=== PATIENT | male | born 1955 | race Caucasian/White ===

== ENCOUNTER 2016-11-23 12:38 | Outpatient (CLI) | payer OTHER | END 2016-11-23 12:39 | disposition home or self-care (01) | LOC: LAB.F 12:38 | PROVIDERS: ATTEND Family Medicine | DX: I82.419 Acute embolism and thrombosis of unspecified femoral vein (principal) | CPT/HCPCS: 85610 ==

== ENCOUNTER → 2017-03-01 | Outpatient (CLI) | payer OTHER | LOC: LAB.F 15:59 | PROVIDERS: ATTEND Family Medicine | DX: I82.419 Acute embolism and thrombosis of unspecified femoral vein (principal) | CPT/HCPCS: 85610 ==

== ENCOUNTER 2017-06-03 12:33 | Outpatient (CLI) | payer OTHER | END 2017-06-03 12:34 | disposition home or self-care (01) | LOC: LAB.F 12:33 | PROVIDERS: ATTEND Family Medicine | DX: I82.419 Acute embolism and thrombosis of unspecified femoral vein (principal) | CPT/HCPCS: 85610 ==

== ENCOUNTER 2017-07-12 11:20 | Emergency (ER) | payer OTHER ==
[2017-07-12 12:06] LABS: BASOPHILS % (AUTO) 0.4 %; EOSINOPHILS # (AUTO) 0.1 10^3/uL (0.0-0.7); EOSINOPHILS % (AUTO) 1.1 %; HGB - HEMOGLOBIN 15.1 g/dL (14.0-18.0); LYMPHOCYTES # (AUTO) 0.9 10^3/uL (1.5-3.5); LYMPHOCYTES % (AUTO) 11.7 %; MEAN CORPUSCULAR HEMOGLOBIN 33.1 pg (27.0-31.0); MEAN CORPUSCULAR HGB CONC 34.6 g/dL (32.0-36.0); MEAN CORPUSCULAR VOLUME 95.6 fL (80.0-94.0); MEAN PLATELET VOLUME 8.1 fL (7.4-11.4); MONOCYTES # (AUTO) 0.6 10^3/uL (0.0-1.0); MONOCYTES % (AUTO) 7.8 %; PLT - PLATELET COUNT 154 10^3/uL (130-450); RED BLOOD COUNT 4.57 10^6/uL (4.70-6.10); WHITE BLOOD COUNT 7.6 x10^3/uL (4.8-10.8)
[2017-07-12 12:14] LABS: INR 2.3 (0.8-1.2); PT - PROTHROMBIN TIME 24.8 secs (9.9-12.6)
[2017-07-12 12:17] LABS: ALBUMIN/GLOBULIN RATIO 1.4 (1.0-2.2); BILIRUBIN,TOTAL 0.5 mg/dL (0.2-1.0); CALCIUM 8.4 mg/dL (8.5-10.3); CREATININE 1.2 mg/dL (0.6-1.2); TOTAL PROTEIN 6.9 g/dL (6.7-8.2)
--- NOTE | 2017-07-12 13:23 | ED Physician Documentation ---
History of Present Illness - Stated complaint Stated Complaint: DIZZY/LETHARGIC - Chief complaint Chief Complaint: Neuro - History obtained from History obtained from: Patient - History of Present Illness Timing: How many weeks ago (3) - Additonal information Additional information: 61-year-old male developed an upper respiratory tract infection twin and . He had a lot of coughing and coughing paroxysms at the time this slowly improved his cough is gotten better but he has had intermittent episodes of dizziness since then. He is having dizziness lasting 1-2 days and this is improved with use of some [place]. Review of Systems Constitutional: reports: Fatigue. denies: Fever Eyes: denies: Decreased vision Ears: denies: Ear pain Nose: reports: Congestion Throat: denies: Sore throat Cardiac: denies: Chest pain / pressure, Palpitations Respiratory: reports: Cough. denies: Dyspnea GI: reports: Nausea. denies: Abdominal Pain, Vomiting : denies: Dysuria, Frequency Skin: denies: Rash Musculoskeletal: denies: Neck pain, Back pain, Extremity pain Neurologic: denies: Generalized weakness, Focal weakness, Numbness PD PAST MEDICAL HISTORY - Past Medical History Past Medical History: Yes Cardiovascular: Deep vein thrombosis Respiratory: Asthma Neuro: None GI: GERD, Chronic constipation : Kidney stones HEENT: None Psych: Depression, Anxiety, ADD/ADHD Derm: None - Past Surgical History Past Surgical History: Yes General: Hiatal hernia repair - Present Medications Home Medications: Ambulatory Orders Medication Instructions Recorded Confirmed Dextroamphetamine/Amphetamine 30 03/02/13 03/02/13 [Adderall 10 mg Tablet] Azithromycin [Zithromax] 250 mg PO DAILY #6 tablet 07/12/17 Carvedilol mg PO 07/12/17 Warfarin Sodium [Coumadin] mg PO 07/12/17 - Allergies Allergies/Adverse Reactions: Allergies Allergy/AdvReac Type Severity Reaction Status Date / Time No Known Drug Allergies Allergy Verified 03/02/13 00:14 - Social History Does the pt smoke?: Yes Smoking Status: Current every day smoker Does the pt drink ETOH?: Yes Does the pt have substance abuse?: No - Immunizations Immunizations are current?: No - POLST Patient has POLST: No PD ED PE NORMAL - Vitals Vital signs reviewed: Yes (hypertensive mild ) - General General: Alert and oriented X 3, No acute distress, Well developed/nourished - HEENT HEENT: Atraumatic, PERRL, EOMI, Other (both TM's are inflamed along the umbo and the left is inflamed in the attic and the landmarks are rounded. 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, No motor deficit, No sensory deficit, Normal speech Eye Opening: Spontaneous Motor: Obeys Commands Verbal: Oriented GCS Score: 15 - Psych Psych: Normal mood, Normal affect Results - Vitals Vitals: Vital Signs - 24 hr 07/12/17 11:33 Temperature 36.2 C L Heart Rate 88 Respiratory 16 Rate Blood Pressure 138/80 H O2 Saturation 100 Oxygen O2 Source Room air - EKG (time done) 1130 Rate: Rate (enter#) (88) Rhythm: NSR, Other (APC's) Compare to prior EKG: Unchanged from prior EKG (08-02-14) Computer interpretation: Agree with computer - Labs Labs: Laboratory Tests 07/12/17 07/12/17 07/12/17 11:57 11:57 11:57 WBC 7.6 RBC 4.57 L Hgb 15.1 Hct 43.7 MCV 95.6 H MCH 33.1 H MCHC 34.6 RDW 13.0 Plt Count 154 MPV 8.1 Neut # 6.0 Lymph # 0.9 L [place] # 0.6 Eos # 0.1 Baso # 0.0 Absolute Nucleated RBC 0.00 Nucleated RBC % 0.0 PT 24.8 H INR 2.3 H Sodium 135 Potassium 3.7 Chloride 102 Carbon Dioxide 25 Anion Gap 8.0 BUN 17 Creatinine 1.2 Estimated GFR (MDRD) 61 L Glucose 140 H Calcium 8.4 L Total Bilirubin 0.5 AST 21 ALT 27 Alkaline Phosphatase 65 Total Protein 6.9 Albumin 4.0 Globulin 2.9 Albumin/Globulin Ratio 1.4 Lipase 20 L PD MEDICAL DECISION MAKING - ED course Complexity details: reviewed results, re-evaluated patient, considered differential, d/w patient ED course: 61-year-old male on Coumadin has developed acute dizziness in episodes since an upper respiratory tract infection 3 weeks ago. He has some improvement in his cough but continues to have intermittent cough and symptoms. On examination today he does have evidence of otitis media bilaterally and I suspect this infection has been indolent giving him symptoms on and off. He is treated here in the emergency department with 10 mg of dexamethasone we will place him on some azithromycin. Departure - Departure Disposition: Home, Self Care Clinical Impression: Otitis media Qualifiers: Otitis media type: suppurative Chronicity: acute Laterality: bilateral Recurrence: not specified as recurrent Spontaneous tympanic membrane rupture: without spontaneous rupture Qualified Code(s): H66.003 - Acute suppurative otitis media without spontaneous rupture of ear drum, bilateral Condition: Stable Instructions: ED Otitis Media Acute Adult Follow-Up: Jonnie Alvarado MD [Primary Care Provider] - Prescriptions: Azithromycin [Zithromax] 250 mg PO DAILY #6 tablet Comments: You are on Coumadin and because you are on antibiotic you will need to have your INR checked in about 3 days follow-up with your primary care doctor.
[2017-07-12] MEDS ORDERED: DEXAMETHASONE 10 MG/ML VIAL PO STA (13:29)
[2017-07-12 13:33] VITALS: BP 126/65
[2017-07-12] MEDS ORDERED: CHERRY SYRUP 10 ML UDC PO ONE (13:41)
== END 2017-07-12 13:40 | disposition home or self-care (01) ==
LOC: ED 11:20
DX: H66.003 Acute suppurative otitis media without spontaneous rupture of ear drum, bilateral (principal); F17.200 Nicotine dependence, unspecified, uncomplicated; R94.31 Abnormal electrocardiogram [ECG] [EKG]; Z86.718 Personal history of other venous thrombosis and embolism; Z79.01 Long term (current) use of anticoagulants
CPT/HCPCS: 36415; 80053; 83690; 85025; 85610; 93005; 99283; A9270

== ENCOUNTER 2017-08-26 07:31 | Outpatient (CLI) | payer OTHER | END 2017-08-26 07:32 | disposition critical access hospital (66) | LOC: EMS 07:31 | PROVIDERS: ATTEND Surgery | DX: R42 Dizziness and giddiness (principal); R11.2 Nausea with vomiting, unspecified | CPT/HCPCS: A0425; A0429 ==

== ENCOUNTER 2017-08-26 08:10 | Emergency (ER) | payer OTHER ==
[2017-08-26] MEDS ORDERED: SODIUM CHLORIDE 0.9% 1,000 ML IV ONE (08:31)
--- NOTE | 2017-08-26 08:35 | ED Physician Documentation ---
History of Present Illness - Stated complaint Stated Complaint: VERTIGO - Chief complaint Chief Complaint: Neuro - History obtained from History obtained from: Patient, EMS - History of Present Illness Timing: How many days ago (2) Pain level max: 0 Pain level now: 0 Improved by: rest Worsened by: moving - Additonal information Additional information: States has felt "weak and like things are spinning" since yesterday. States similar symptoms in the past with ear infections. Denies any fevers, cough, diarrhea. Has had some nausea without vomiting. Not feeling the vertigo now. Review of Systems Constitutional: denies: Fever, Chills Nose: denies: Rhinorrhea / runny nose, Congestion Cardiac: denies: Chest pain / pressure Respiratory: denies: Cough, Wheezing GI: denies: Vomiting, Diarrhea Skin: denies: Rash Musculoskeletal: denies: Neck pain, Back pain Neurologic: denies: Headache PD PAST MEDICAL HISTORY - Past Medical History Past Medical History: Yes Cardiovascular: Deep vein thrombosis, Atrial fibrillation Respiratory: Asthma Neuro: None GI: GERD, Chronic constipation : Kidney stones HEENT: None Psych: Depression, Anxiety, ADD/ADHD Derm: None - Past Surgical History Past Surgical History: Yes General: Hiatal hernia repair - Present Medications Home Medications: Ambulatory Orders Medication Instructions Recorded Confirmed Dextroamphetamine/Amphetamine 30 03/02/13 03/02/13 [Adderall 10 mg Tablet] Carvedilol mg PO 07/12/17 Warfarin Sodium [Coumadin] mg PO 07/12/17 Meclizine HCl 12.5 mg PO Q6H PRN #10 tablet 08/26/17 - Allergies Allergies/Adverse Reactions: Allergies Allergy/AdvReac Type Severity Reaction Status Date / Time No Known Drug Allergies Allergy Verified 08/26/17 08:32 - Social History Does the pt smoke?: Yes Smoking Status: Current every day smoker Does the pt drink ETOH?: Yes Does the pt have substance abuse?: No - Immunizations Immunizations are current?: No - POLST Patient has POLST: No PD ED PE NORMAL - Vitals Vital signs reviewed: Yes - General General: Alert and oriented X 3, No acute distress - HEENT HEENT: PERRL, EOMI, Ears normal, Moist mucous membranes, Pharynx benign - Neck Neck: Supple, no meningeal sign - Cardiac Cardiac: RRR, Strong equal pulses - Respiratory Respiratory: No respiratory distress, Clear bilaterally - Abdomen Abdomen: Soft, Non tender, Non distended - Derm Derm: Warm and dry - Neuro Neuro: Alert and oriented X 3, health outcomes liaison 2-12 intact Eye Opening: Spontaneous Motor: Obeys Commands Verbal: Oriented GCS Score: 15 - Psych Psych: Normal mood, Normal affect Results - Vitals Vitals: Vital Signs - 24 hr 08/26/17 08/26/17 08:14 09:36 Temperature 36.5 C Heart Rate 56 L 60 Respiratory 18 14 Rate Blood Pressure 129/83 H 157/85 H O2 Saturation 97 96 Oxygen O2 Source Room air - EKG (time done) 0823 Rate: Rate (enter#) (92) Rhythm: NSR, Other (PAC) [place]: Normal Intervals: Normal IN QRS: Normal Ischemia: Normal ST segments - Labs Labs: Laboratory Tests 08/26/17 08/26/17 08/26/17 08:38 08:38 08:55 WBC 6.5 RBC 4.53 L Hgb 15.2 Hct 43.3 MCV 95.6 H MCH 33.6 H MCHC 35.1 RDW 13.7 Plt Count 146 MPV 8.6 Neut # 4.4 Lymph # 1.5 [place] # 0.5 Eos # 0.1 Baso # 0.0 Absolute Nucleated RBC 0.00 Nucleated RBC % 0.0 PT INR Sodium 138 Potassium 3.7 Chloride 104 Carbon Dioxide 26 Anion Gap 8.0 BUN 26 H Creatinine 1.4 H Estimated GFR (MDRD) 51 L Glucose 115 H Calcium 8.2 L Phosphorus 3.1 Magnesium 1.9 Total Bilirubin 0.8 AST 21 ALT 29 Alkaline Phosphatase 61 Total Protein 6.7 Albumin 4.0 Globulin 2.7 Albumin/Globulin Ratio 1.5 Lipase 18 L Urine Color YELLOW Urine Clarity CLEAR Urine pH 6.0 Ur Specific [place] 1.025 Urine Protein NEGATIVE Urine Glucose (UA) NEGATIVE Urine Ketones NEGATIVE Urine Occult Blood NEGATIVE Urine Nitrite NEGATIVE Urine Bilirubin NEGATIVE Urine Urobilinogen 0.2 (NORMAL) Ur Leukocyte Esterase NEGATIVE Ur Microscopic Review NOT INDICATED Urine Culture Comments NOT INDICATED 08/26/17 08:58 WBC RBC Hgb Hct MCV MCH MCHC RDW Plt Count MPV Neut # Lymph # [place] # Eos # Baso # Absolute Nucleated RBC Nucleated RBC % PT 26.3 H INR 2.4 H Sodium Potassium Chloride Carbon Dioxide Anion Gap BUN Creatinine Estimated GFR (MDRD) Glucose Calcium Phosphorus Magnesium Total Bilirubin AST ALT Alkaline Phosphatase Total Protein Albumin Globulin Albumin/Globulin Ratio Lipase Urine Color Urine Clarity Urine pH Ur Specific [place] Urine Protein Urine Glucose (UA) Urine Ketones Urine Occult Blood Urine Nitrite Urine Bilirubin Urine Urobilinogen Ur Leukocyte Esterase Ur Microscopic Review Urine Culture Comments - Rads (name of study) cxr Radiology: Prelim report reviewed, EMP read contemporaneously, See rad report ( no acute disease) PD MEDICAL DECISION MAKING - ED course Complexity details: reviewed old records, reviewed results, re-evaluated patient , considered differential, d/w patient ED course: Patient is a 61-year-old male who presents to the emergency department after having symptoms of vertigo yesterday and today. This seemed to improve prior to arrival in the emergency department. Normal gait. Normal cerebellar test. No evidence of posterior cerebellar stroke. No evidence of tumor mass. No evidence of otitis media. Will prescribe meclizine in case it recurs and have him follow-up with his doctor. Patient counseled regarding signs and symptoms for which I believe and urgent re-evaluation would be necessary. Patient with good understanding of and agreement to plan and is comfortable going home at this time This document was made in part using voice recognition software. While efforts are made to proofread this document, sound alike and grammatical errors may occur. Departure - Departure Disposition: 01 Home, Self Care Clinical Impression: Vertigo, Weakness Condition: Good Instructions: ED Vertigo Unspecified Follow-Up: Jonnie Alvarado MD [Primary Care Provider] - Within 1 week Prescriptions: Meclizine HCl 12.5 mg PO Q6H PRN #10 tablet PRN Reason: Vertigo Comments: Your tests are normal today. This should improve over the next day or 2. Return if you worsen. Drink plenty of fluids and rest today. Discharge Date/Time: 08/26/17 09:44
[2017-08-26 09:01] LABS: BASOPHILS % (AUTO) 0.5 %; EOSINOPHILS # (AUTO) 0.1 10^3/uL (0.0-0.7); EOSINOPHILS % (AUTO) 1.4 %; HGB - HEMOGLOBIN 15.2 g/dL (14.0-18.0); LYMPHOCYTES # (AUTO) 1.5 10^3/uL (1.5-3.5); LYMPHOCYTES % (AUTO) 22.4 %; MEAN CORPUSCULAR HEMOGLOBIN 33.6 pg (27.0-31.0); MEAN CORPUSCULAR HGB CONC 35.1 g/dL (32.0-36.0); MEAN CORPUSCULAR VOLUME 95.6 fL (80.0-94.0); MEAN PLATELET VOLUME 8.6 fL (7.4-11.4); MONOCYTES # (AUTO) 0.5 10^3/uL (0.0-1.0); MONOCYTES % (AUTO) 8.4 %; NEUTROPHILS # (AUTO) 4.4 10^3/uL (1.5-6.6); NEUTROPHILS % (AUTO) 67.3 %; PLT - PLATELET COUNT 146 10^3/uL (130-450); RED BLOOD COUNT 4.53 10^6/uL (4.70-6.10); RED CELL DISTRIBUTION WIDTH 13.7 % (12.0-15.0); WHITE BLOOD COUNT 6.5 x10^3/uL (4.8-10.8)
--- NOTE | 2017-08-26 09:04 | XRAY Report ---
EXAM: CHEST RADIOGRAPHY EXAM DATE: 08/26/2017 08:50 AM. CLINICAL HISTORY: Dizziness. Shortness of air. COMPARISON: 10/25/2013. TECHNIQUE: 1 view. FINDINGS: Lungs/Pleura: No focal opacities evident. No pleural effusion. No pneumothorax. Mediastinum: Cardiomegaly. Mild aortic tortuosity. Other: None. IMPRESSION: 1. No acute disease in the chest. [facility] Referring Provider Line: [phone] SITE ID: [id number]
[2017-08-26 09:11] LABS: BILIRUBIN,URINE NEGATIVE (NEGATIVE); GLUCOSE, URINE (UA) NEGATIVE (NEGATIVE); KETONES,URINE (UA) NEGATIVE (NEGATIVE); LEUKOCYTE ESTERASE, URINE NEGATIVE (NEGATIVE); NITRITE,URINE NEGATIVE (NEGATIVE); OCCULT BLOOD,URINE NEGATIVE (NEGATIVE); PROTEIN,URINE NEGATIVE (NEGATIVE); UROBILINOGEN,URINE 0.2 (NORMAL) E.U./dL (NORMAL)
[2017-08-26 09:14] LABS: CLARITY,URINE CLEAR (CLEAR)
[2017-08-26 09:15] LABS: ALBUMIN/GLOBULIN RATIO 1.5 (1.0-2.2); BILIRUBIN,TOTAL 0.8 mg/dL (0.2-1.0); CALCIUM 8.2 mg/dL (8.5-10.3); CREATININE 1.4 mg/dL (0.6-1.2); MAGNESIUM 1.9 mg/dL (1.7-2.8); PHOSPHORUS 3.1 mg/dL (2.5-4.6); TOTAL PROTEIN 6.7 g/dL (6.7-8.2)
[2017-08-26 09:19] LABS: INR 2.4 (0.8-1.2); PT - PROTHROMBIN TIME 26.3 secs (9.9-12.6)
[2017-08-26 09:37] VITALS: BP 157/85
== END 2017-08-26 09:44 | disposition home or self-care (01) ==
LOC: EDUNIT# → ED 08:10
DX: R42 Dizziness and giddiness (principal); R53.1 Weakness; R94.31 Abnormal electrocardiogram [ECG] [EKG]; I48.91 Unspecified atrial fibrillation; F17.200 Nicotine dependence, unspecified, uncomplicated; Z86.718 Personal history of other venous thrombosis and embolism; Z79.01 Long term (current) use of anticoagulants
CPT/HCPCS: 36415; 71045; 80053; 81001; 81003; 83690; 83735; 84100; 85025; 85610; 87086; 93005; 96360; 99283; 99284

== ENCOUNTER 2017-11-30 11:25 | Outpatient (CLI) | payer OTHER | END 2017-11-30 11:26 | disposition home or self-care (01) | LOC: LAB.F 11:25 | PROVIDERS: ATTEND Family Medicine | DX: I82.419 Acute embolism and thrombosis of unspecified femoral vein (principal) | CPT/HCPCS: 85610 ==

== ENCOUNTER 2018-02-28 15:22 | Outpatient (CLI) | payer OTHER | END 2018-02-28 15:23 | disposition home or self-care (01) | LOC: LAB.F 15:22 | PROVIDERS: ATTEND Family Medicine | DX: I82.419 Acute embolism and thrombosis of unspecified femoral vein (principal) | CPT/HCPCS: 85610 ==

== ENCOUNTER 2018-06-29 11:13 | Outpatient (CLI) | payer OTHER ==
[2018-06-29 17:52] LABS: INR 1.3 (0.8-1.2); PT - PROTHROMBIN TIME 14.7 secs (9.9-12.6)
[2018-06-29 18:01] LABS: ALBUMIN 4.1 g/dL (3.2-5.5); ALBUMIN/GLOBULIN RATIO 1.3 (1.0-2.2); CALCIUM 8.8 mg/dL (8.5-10.3); CREATININE 1.2 mg/dL (0.6-1.2); TOTAL PROTEIN 7.2 g/dL (6.7-8.2)
== END 2018-06-29 11:14 | disposition home or self-care (01) ==
LOC: LAB.F 11:13
PROVIDERS: ATTEND Family Medicine
DX: I82.512 Chronic embolism and thrombosis of left femoral vein (principal); Z13.220 Encounter for screening for lipoid disorders; Z13.1 Encounter for screening for diabetes mellitus
CPT/HCPCS: 36415; 80053; 82465; 83718; 83721; 85610

== ENCOUNTER 2018-07-19 15:16 | Outpatient (CLI) | payer OTHER | END 2018-07-19 15:17 | disposition home or self-care (01) | LOC: LAB.F 15:16 | PROVIDERS: ATTEND Family Medicine | DX: I82.419 Acute embolism and thrombosis of unspecified femoral vein (principal) | CPT/HCPCS: 85610 ==

== ENCOUNTER 2018-11-02 14:06 | Outpatient (CLI) | payer OTHER | END 2018-11-02 14:07 | disposition home or self-care (01) | LOC: LAB.F 14:06 | PROVIDERS: ATTEND Family Medicine | DX: I82.419 Acute embolism and thrombosis of unspecified femoral vein (principal) | CPT/HCPCS: 85610 ==

== ENCOUNTER 2018-11-11 12:41 | Outpatient (CLI) | payer OTHER | END 2018-11-11 12:42 | disposition home or self-care (01) | LOC: LAB.F 12:41 | PROVIDERS: ATTEND Family Medicine | DX: I82.419 Acute embolism and thrombosis of unspecified femoral vein (principal) | CPT/HCPCS: 85610 ==

== ENCOUNTER 2019-05-30 08:00 | Outpatient (CLI) | payer OTHER | END 2019-05-30 23:59 | disposition home or self-care (01) | LOC: LAB.S 08:00 | PROVIDERS: ATTEND Family Medicine | DX: I82.419 Acute embolism and thrombosis of unspecified femoral vein (principal) | CPT/HCPCS: 85610 ==

== ENCOUNTER 2019-11-29 15:40 | Outpatient (CLI) | payer SELFPAY | END 2019-11-29 15:41 | disposition home or self-care (01) | LOC: LAB 15:40 | PROVIDERS: ATTEND Family Medicine | DX: I82.419 Acute embolism and thrombosis of unspecified femoral vein (principal) | CPT/HCPCS: 85610 ==

== ENCOUNTER 2020-03-06 17:04 | Outpatient (CLI) | payer MEDICARE | END 2020-03-06 17:05 | disposition home or self-care (01) | LOC: LAB 17:04 | PROVIDERS: ATTEND Family Medicine | DX: I82.419 Acute embolism and thrombosis of unspecified femoral vein (principal) | CPT/HCPCS: 85610 ==

== ENCOUNTER 2020-04-03 20:04 | Outpatient (CLI) | payer MEDICARE, OTHER | END 2020-04-03 20:05 | disposition home or self-care (01) | LOC: LAB 20:04 | PROVIDERS: ATTEND Family Medicine | DX: I82.419 Acute embolism and thrombosis of unspecified femoral vein (principal) | CPT/HCPCS: 85610 ==

== ENCOUNTER 2020-07-04 19:51 | Outpatient (CLI) | payer MEDICARE ==
[2020-07-04 20:32] LABS: ALBUMIN 4.3 g/dL (3.2-5.5); ALBUMIN/GLOBULIN RATIO 1.4 (1.0-2.2); BILIRUBIN,TOTAL 0.8 mg/dL (0.2-1.0); CALCIUM 8.4 mg/dL (8.5-10.3); CREATININE 1.5 mg/dL (0.6-1.2); TOTAL PROTEIN 7.4 g/dL (6.7-8.2)
== END 2020-07-04 19:52 | disposition home or self-care (01) ==
LOC: LAB 19:51
PROVIDERS: ATTEND Family Medicine
DX: I10 Essential (primary) hypertension (principal); Z12.5 Encounter for screening for malignant neoplasm of prostate; Z13.1 Encounter for screening for diabetes mellitus; Z13.220 Encounter for screening for lipoid disorders
CPT/HCPCS: 80053; 82465; 83718; 83721; G0103; 36415; 84153

== ENCOUNTER 2020-10-02 17:49 | Outpatient (CLI) | payer MEDICARE | END 2020-10-02 17:50 | disposition home or self-care (01) | LOC: LAB 17:49 | PROVIDERS: ATTEND Family Medicine | DX: I82.419 Acute embolism and thrombosis of unspecified femoral vein (principal) | CPT/HCPCS: 85610 ==

== ENCOUNTER 2021-01-28 09:39 | Outpatient (CLI) | payer MEDICARE | END 2021-01-28 09:40 | disposition home or self-care (01) | LOC: LAB 09:39 | PROVIDERS: ATTEND Family Medicine | DX: I82.419 Acute embolism and thrombosis of unspecified femoral vein (principal) | CPT/HCPCS: 36416; 85610 ==

== ENCOUNTER 2021-09-08 18:20 | Outpatient (CLI) | payer MEDICARE | END 2021-09-08 18:21 | disposition home or self-care (01) | LOC: LAB 18:20 | PROVIDERS: ATTEND Family Medicine | DX: Z53.9 Procedure and treatment not carried out, unspecified reason (principal) ==

== ENCOUNTER 2021-09-10 18:05 | Outpatient (CLI) | payer MEDICARE | END 2021-09-10 18:06 | disposition home or self-care (01) | LOC: LAB 18:05 | PROVIDERS: ATTEND Family Medicine | DX: I82.419 Acute embolism and thrombosis of unspecified femoral vein (principal) | CPT/HCPCS: 85610 ==

== ENCOUNTER 2021-10-13 07:00 | Outpatient (CLI) | payer MEDICARE ==
--- NOTE | 2021-10-14 08:54 | XRAY Report ---
PROCEDURE: Chest 2 View X-Ray INDICATIONS: Cough TECHNIQUE: 2 view(s) of the chest. COMPARISON: 08/26/2017 FINDINGS: Surgical changes and devices: None. Lungs and pleura: No pleural effusions or pneumothorax. Lungs are clear. Mediastinum: Mediastinal contours are normal. Heart size is normal. Bones and chest wall: No suspicious bony abnormalities. Soft tissues appear unremarkable. IMPRESSION: No acute cardiopulmonary process demonstrated radiographically. Reviewed by: Greg Bal MD on 10/14/2021 8:53 AM PDT Approved by: Greg Bal MD on 10/14/2021 8:53 AM PDT Station ID: [id number]
== END 2021-10-13 23:59 | disposition home or self-care (01) ==
LOC: DI.S 07:00
PROVIDERS: ATTEND Physician Assistant
DX: R05.1 Acute cough (principal); I82.512 Chronic embolism and thrombosis of left femoral vein; U07.1 COVID-19
CPT/HCPCS: 36416; 71046; 85610; U0004

== ENCOUNTER 2021-12-18 11:13 | Outpatient (CLI) | payer MEDICARE | END 2021-12-18 11:14 | disposition home or self-care (01) | LOC: LAB.S 11:13 | PROVIDERS: ATTEND Hospitalist | DX: I82.512 Chronic embolism and thrombosis of left femoral vein (principal) | CPT/HCPCS: 36416; 85610 ==

== ENCOUNTER 2021-12-27 14:45 | Outpatient (CLI) | payer MEDICARE | END 2021-12-27 14:46 | disposition home or self-care (01) | LOC: LAB 14:45 | PROVIDERS: ATTEND Hospitalist | DX: I82.512 Chronic embolism and thrombosis of left femoral vein (principal) | CPT/HCPCS: 36416; 85610 ==

== ENCOUNTER 2022-01-16 13:56 | Outpatient (CLI) | payer MEDICARE | END 2022-01-16 13:57 | disposition home or self-care (01) | LOC: LAB.S 13:56 | PROVIDERS: ATTEND Hospitalist | DX: I82.512 Chronic embolism and thrombosis of left femoral vein (principal) | CPT/HCPCS: 36416; 85610 ==

== ENCOUNTER 2022-03-16 14:35 | Outpatient (CLI) | payer MEDICARE | END 2022-03-16 14:36 | disposition home or self-care (01) | LOC: LAB.S 14:35 | PROVIDERS: ATTEND Hospitalist | DX: I82.512 Chronic embolism and thrombosis of left femoral vein (principal) | CPT/HCPCS: 36416; 85610 ==

== ENCOUNTER 2022-07-03 14:05 | Outpatient (CLI) | payer MEDICARE | END 2022-07-03 14:06 | disposition home or self-care (01) | LOC: LAB.S 14:05 | PROVIDERS: ATTEND Hospitalist | DX: I82.512 Chronic embolism and thrombosis of left femoral vein (principal) | CPT/HCPCS: 36416; 85610 ==

== ENCOUNTER 2022-08-25 12:25 | Outpatient (CLI) | payer MEDICARE | END 2022-08-25 12:26 | disposition home or self-care (01) | LOC: LAB.S 12:25 | PROVIDERS: ATTEND Hospitalist | DX: I82.512 Chronic embolism and thrombosis of left femoral vein (principal) | CPT/HCPCS: 36416; 85610 ==

== ENCOUNTER 2022-09-04 14:31 | Outpatient (CLI) | payer MEDICARE | END 2022-09-04 14:32 | disposition home or self-care (01) | LOC: LAB.S 14:31 | PROVIDERS: ATTEND Hospitalist | DX: I82.512 Chronic embolism and thrombosis of left femoral vein (principal) | CPT/HCPCS: 36416; 85610 ==

== ENCOUNTER 2022-12-03 14:16 | Outpatient (CLI) | payer MEDICARE | END 2022-12-03 14:17 | disposition home or self-care (01) | LOC: LAB.S 14:16 | PROVIDERS: ATTEND Hospitalist | DX: I82.512 Chronic embolism and thrombosis of left femoral vein (principal) | CPT/HCPCS: 36416; 85610 ==

== ENCOUNTER 2022-12-25 14:20 | Outpatient (CLI) | payer MEDICARE | END 2022-12-25 14:21 | disposition home or self-care (01) | LOC: LAB.S 14:20 | PROVIDERS: ATTEND Hospitalist | DX: I82.512 Chronic embolism and thrombosis of left femoral vein (principal) | CPT/HCPCS: 36416; 85610 ==

== ENCOUNTER 2023-04-23 12:49 | Outpatient (CLI) | payer MEDICARE | END 2023-04-23 12:50 | disposition home or self-care (01) | LOC: LAB.S 12:49 | PROVIDERS: ATTEND Hospitalist | DX: I82.512 Chronic embolism and thrombosis of left femoral vein (principal) | CPT/HCPCS: 36416; 85610 ==

== ENCOUNTER 2023-04-23 15:15 | Outpatient (CLI) | payer MEDICARE ==
[2023-04-23 15:39] LABS: BASOPHILS % (AUTO) 0.5 %; EOSINOPHILS # (AUTO) 0.1 10^3/uL (0.0-0.7); EOSINOPHILS % (AUTO) 1.1 %; HGB - HEMOGLOBIN 14.6 g/dL (14.0-18.0); LYMPHOCYTES # (AUTO) 1.4 10^3/uL (1.5-3.5); LYMPHOCYTES % (AUTO) 16.6 %; MEAN CORPUSCULAR HEMOGLOBIN 32.8 pg (27.0-31.0); MEAN CORPUSCULAR HGB CONC 34.8 g/dL (32.0-36.0); MEAN CORPUSCULAR VOLUME 94.4 fL (80.0-94.0); MEAN PLATELET VOLUME 9.9 fL (7.4-11.4); MONOCYTES # (AUTO) 0.9 10^3/uL (0.0-1.0); MONOCYTES % (AUTO) 10.4 %; NEUTROPHILS # (AUTO) 5.9 10^3/uL (1.5-6.6); NEUTROPHILS % (AUTO) 71.2 %; PLT - PLATELET COUNT 161 10^3/uL (130-450); RED BLOOD COUNT 4.45 10^6/uL (4.70-6.10); RED CELL DISTRIBUTION WIDTH 12.5 % (12.0-15.0); WHITE BLOOD COUNT 8.2 x10^3/uL (4.8-10.8)
[2023-04-23 15:50] LABS: ALBUMIN/GLOBULIN RATIO 1.4 (1.0-2.2); BILIRUBIN,TOTAL 0.6 mg/dL (0.2-1.0); CALCIUM 8.7 mg/dL (8.5-10.3); CREATININE 1.6 mg/dL (0.6-1.3); POTASSIUM 3.7 mmol/L (3.5-4.5); TOTAL PROTEIN 6.8 g/dL (6.4-8.9)
== END 2023-04-23 15:16 | disposition home or self-care (01) ==
LOC: LAB 15:15
PROVIDERS: ATTEND Specialist
DX: I10 Essential (primary) hypertension (principal); I82.512 Chronic embolism and thrombosis of left femoral vein
CPT/HCPCS: 36415; 36416; 80053; 82465; 83718; 83721; 85025; 85610

== ENCOUNTER 2023-06-28 14:15 | Outpatient (CLI) | payer MEDICARE | END 2023-06-28 14:16 | disposition home or self-care (01) | LOC: LAB.S 14:15 | PROVIDERS: ATTEND Internal Medicine | DX: I82.512 Chronic embolism and thrombosis of left femoral vein (principal) | CPT/HCPCS: 36416; 85610 ==

== ENCOUNTER 2023-07-14 14:02 | Outpatient (CLI) | payer MEDICARE | END 2023-07-14 14:03 | disposition home or self-care (01) | LOC: LAB.S 14:02 | PROVIDERS: ATTEND Internal Medicine | DX: I82.512 Chronic embolism and thrombosis of left femoral vein (principal) | CPT/HCPCS: 36416; 85610 ==

== ENCOUNTER 2023-08-24 08:26 | Outpatient (CLI) | payer MEDICARE | END 2023-08-24 08:27 | disposition home or self-care (01) | LOC: LAB.S 08:26 | PROVIDERS: ATTEND Hospitalist | DX: I82.512 Chronic embolism and thrombosis of left femoral vein (principal) | CPT/HCPCS: 36416; 85610 ==

== ENCOUNTER 2023-08-27 07:30 | Outpatient (CLI) | payer MEDICARE | END 2023-08-27 07:31 | disposition home or self-care (01) | LOC: LAB.S 07:30 | PROVIDERS: ATTEND Hospitalist | DX: I82.512 Chronic embolism and thrombosis of left femoral vein (principal) | CPT/HCPCS: 36416; 85610 ==

== ENCOUNTER 2023-09-03 10:43 | Outpatient (CLI) | payer MEDICARE | END 2023-09-03 10:44 | disposition home or self-care (01) | LOC: LAB.S 10:43 | PROVIDERS: ATTEND Hospitalist | DX: I82.512 Chronic embolism and thrombosis of left femoral vein (principal) | CPT/HCPCS: 36416; 85610 ==

== ENCOUNTER 2023-09-10 11:41 | Outpatient (CLI) | payer MEDICARE | END 2023-09-10 11:42 | disposition home or self-care (01) | LOC: LAB.S 11:41 | PROVIDERS: ATTEND Hospitalist | DX: I82.512 Chronic embolism and thrombosis of left femoral vein (principal) | CPT/HCPCS: 36416; 85610 ==

== ENCOUNTER 2023-09-17 14:34 | Outpatient (CLI) | payer MEDICARE | END 2023-09-17 14:35 | disposition home or self-care (01) | LOC: LAB.S 14:34 | PROVIDERS: ATTEND Hospitalist | DX: I82.512 Chronic embolism and thrombosis of left femoral vein (principal) | CPT/HCPCS: 36416; 85610 ==

== ENCOUNTER 2023-09-27 14:01 | Outpatient (CLI) | payer MEDICARE | END 2023-09-27 14:02 | disposition home or self-care (01) | LOC: LAB.S 14:01 | PROVIDERS: ATTEND Hospitalist | DX: I82.512 Chronic embolism and thrombosis of left femoral vein (principal) | CPT/HCPCS: 36416; 85610 ==

== ENCOUNTER 2023-10-14 14:31 | Outpatient (CLI) | payer MEDICARE | END 2023-10-14 14:32 | disposition home or self-care (01) | LOC: LAB.S 14:31 | PROVIDERS: ATTEND Hospitalist | DX: I82.512 Chronic embolism and thrombosis of left femoral vein (principal) | CPT/HCPCS: 36416; 85610 ==

== ENCOUNTER 2023-10-28 11:54 | Outpatient (CLI) | payer MEDICARE | END 2023-10-28 11:55 | disposition home or self-care (01) | LOC: LAB.S 11:54 | PROVIDERS: ATTEND Hospitalist | DX: I82.512 Chronic embolism and thrombosis of left femoral vein (principal) | CPT/HCPCS: 36416; 85610 ==

== ENCOUNTER 2024-03-10 17:04 | Outpatient (CLI) | payer MEDICARE | END 2024-03-10 23:59 | disposition EMS.NT | LOC: EMS 17:04 | DX: I48.91 Unspecified atrial fibrillation (principal); I10 Essential (primary) hypertension ==